=== PATIENT | male | born 1995 | race Caucasian/White ===

== ENCOUNTER 2018-12-28 11:35 | Emergency (ER) | payer OTHER ==
[~2018-12-28] VITALS: Ht 165.1 cm; Wt 99.8 kg
[2018-12-28 11:43] VITALS: BP 150/110
--- NOTE | 2018-12-28 12:21 | NUR ---
PATIENT AMBULATED TO BED 5 AT THIS TIME.
--- NOTE | 2018-12-28 12:40 | NUR ---
PATIENT IS A 23 YO MALE BIB SELF FOR ABDOMINAL PAIN STATES HE HAS AN ACTIVE GI BLEED VOMITNG BLOOD AND HAVING BLOOD IN STOOL HE IS AWAKE AND ALERT, VERY AGITATED AND YELLING AND ACTING OUT.
[2018-12-28 13:25] LABS: BASOPHILS # (AUTO) 0.1 K/uL (0.00-0.22); BASOPHILS % (AUTO) 0.6 % (0.0-2.0); EOSINOPHILS # (AUTO) 0.1 K/uL (0-0.4); EOSINOPHILS % (AUTO) 1.6 % (0.0-4.0); HEMATOCRIT 46.6 % (36-52); HEMOGLOBIN 15.5 g/dL (12.0-18.0); LYMPHOCYTES # (AUTO) 1.8 K/uL (2.0-11.5); LYMPHOCYTES % (AUTO) 19.5 % (20.5-51.1); MEAN CORPUSCULAR HEMOGLOBIN 28 pg (27-31); MEAN CORPUSCULAR HGB CONC 33 g/dL (33-37); MONOCYTES # (AUTO) 0.6 K/uL (0.8-1.0); MONOCYTES % (AUTO) 6.2 % (1.7-9.3); NEUTROPHILS # (AUTO) 6.5 K/uL (1.8-7.7); NEUTROPHILS % (AUTO) 72.1 % (42.2-75.2); PLATELET COUNT (AUTO) 165 K/uL (140-450); RED BLOOD CELL COUNT(AUTO) 5.55 MIL/uL (4.20-6.10); RED CELL DISTRIBUTION WIDTH 13.6 % (11.6-13.7)
[2018-12-28 13:43] LABS: ANION GAP 10.8 (8-16); CARBON DIOXIDE 31.9 mmol/L (21-32); CREATININE 1.2 mg/dL (0.7-1.3); POTASSIUM 3.7 mmol/L (3.5-5.1); TOTAL BILIRUBIN 0.3 mg/dL (0.0-1.0)
[2018-12-28 14:07] LABS: BARBITURATE, URINE NEG. ng/ml (NEG <=200); BENZODIAZEPINE, URINE NEG. ng/mL (NEG <=200); CANNABINOID, URINE NEG. ng/mL (NEG <=50); COCAINE, URINE NEG. ng/mL (NEG <=300); OPIATE, URINE NEG. ng/mL (NEG <=2000); PHENCYCLIDINE SCREEN,URINE NEG. ng/mL (NEG <=25)
[2018-12-28 14:08] LABS: ACETAMINOPHEN < 0.5 ug/ml (10-30)
--- NOTE | 2018-12-28 14:13 | NUR ---
PT STATED HE HAS BIPOLAR . MED: ABILICHRIS, DEPANG& SEROQUEL.
[2018-12-28 14:15] LABS: APPEARANCE,URINE CLEAR (CLEAR); BILIRUBIN,URINE NEGATIVE (NEGATIVE); BLOOD, URINE NEGATIVE (NEGATIVE); COLOR,URINE YELLOW (YELLOW); LEUKOCYTE ESTERASE ,URINE NEGATIVE (NEGATIVE); NITRITE, URINE NEGATIVE (NEGATIVE); UGLUCOSE NEGATIVE (NEGATIVE)
--- NOTE | 2018-12-28 14:40 | NUR ---
TELEPSYCH CALLED IN FOR PT
--- NOTE | 2018-12-28 15:00 | NUR ---
Patient being evaluated by DR LAW at bedside.
[2018-12-28 15:10] VITALS: BP 131/89
== END 2018-12-28 15:10 | disposition home or self-care (01) ==
LOC: MED 11:35
DX: G89.29 Other chronic pain (principal); R10.13 Epigastric pain; F30.9 Manic episode, unspecified; R11.2 Nausea with vomiting, unspecified; F17.200 Nicotine dependence, unspecified, uncomplicated
CPT/HCPCS: 36415; 74176; 80053; 80305; 81003; 83690; 85025; 99284; G0480; G0482